=== PATIENT | female | born 1995 ===

== ENCOUNTER 2018-04-13 08:30 | Inpatient (IN) | payer OTHER ==
[~2018-04-13] VITALS: Ht 162.6 cm; Wt 90.7 kg
[2018-04-13] MEDS ORDERED: PRENATAL 19 TA1 EAC1 PO (10:28)
[2018-04-15] MEDS ORDERED: PREPLUS CA-FE1 EACH PO (08:44)
== END 2018-04-15 13:35 | disposition home or self-care (01) | DRG 807 ==
LOC: OB/GYN 08:30 → LDR 08:30 → OB/GYN 21:43
PROC: 10E0XZZ Delivery of Products of Conception, External Approach (ICD-10-PCS; principal; 2018-04-13)
PROC: 0HQ9XZZ Repair Perineum Skin, External Approach (ICD-10-PCS; 2018-04-13)
PROC: 3E033VJ Introduction of Other Hormone into Peripheral Vein, Percutaneous Approach (ICD-10-PCS; 2018-04-13)
PROC: 4A1HXCZ Monitoring of Products of Conception, Cardiac Rate, External Approach (ICD-10-PCS; 2018-04-13)
DX: O70.0 First degree perineal laceration during delivery (principal); Z37.0 Single live birth; Z3A.40 40 weeks gestation of pregnancy; Z22.330 Carrier of Group B streptococcus

== ENCOUNTER 2019-09-05 06:40 | Inpatient (IN) | payer OTHER ==
[~2019-09-05] VITALS: Ht 162.6 cm; Wt 89.8 kg
[~2019-09-05 06:40] MED LIST: PRENATAL 19 TA1 EAC1 PO; PREPLUS CA-FE1 EACH PO
== END 2019-09-08 14:18 | disposition home or self-care (01) | DRG 788 ==
LOC: OB/GYN 06:40 → LDR 06:40 → O/R 11:44 → OB/GYN 12:55
PROVIDERS: ADMIT Obstetrics & Gynecology
PROC: 4A1HXCZ Monitoring of Products of Conception, Cardiac Rate, External Approach (ICD-10-PCS; 2019-09-05)
PROC: BY4FZZZ Ultrasonography of Third Trimester, Single Fetus (ICD-10-PCS; 2019-09-05)
PROC: 10D00Z1 Extraction of Products of Conception, Low, Open Approach (ICD-10-PCS; principal; 2019-09-05 10:00)
DX: O64.1XX0 Obstructed labor due to breech presentation, not applicable or unspecified (principal); Z3A.39 39 weeks gestation of pregnancy; Z37.0 Single live birth; O26.843 Uterine size-date discrepancy, third trimester; O36.8131 Decreased fetal movements, third trimester, fetus 1